=== PATIENT | female | born 1975 | race American Indian/Alaskan Native ===

== ENCOUNTER 2017-12-23 05:14 | Emergency (ER) | payer BC ==
--- NOTE | 2017-12-23 10:11 | Emergency Department Report ---
ED General Adult HPI - General Chief complaint: Rectal Pain Stated complaint: HEMORRHOIDS Time Seen by Provider: 12/23/17 10:03 Source: patient Mode of arrival: Ambulatory Limitations: No Limitations - History of Present Illness Initial comments: 42-year-old female with past medical history of hemorrhoids in the past presents to the hospital complaining of swollen hemorrhoids since 7 PM yesterday after attempting to strain to have a bowel movement. Patient is experiencing constipation and has not had a good bowel movement in the last 2-3 days. She complains of 5/10 rectal pain secondary to hemorrhoid and is worse with palpation and defecation. Minimum bleeding reported. History of hemorrhoids before but they have never been this pain. - Related Data Previous Rx's Medication Instructions Recorded Last Taken Type Dibucaine 1% [Nupercainal] 1 applicatio NC TID PRN #1 tube 12/23/17 Unknown Rx Hydrocortisone/Pramoxine 10 gm RC QID PRN #1 foam 12/23/17 Unknown Rx [Proctofoam-Hc Foam] Polyethylene Glycol 3350 [Miralax 17 gm PO QDAY PRN #7 packet 12/23/17 Unknown Rx 3350] Allergies Allergy/AdvReac Type Severity Reaction Status Date / Time No Known Allergies Allergy Unverified 12/23/17 06:59 ED Review of Systems ROS: Stated complaint: HEMORRHOIDS Other details as noted in HPI Comment: All other systems reviewed and negative ED Past Medical Hx - Past Medical History Additional medical history: Hemorrhoids - Surgical History Past Surgical History?: No - Social History Smoking Status: Never Smoker Substance Use Type: None - Medications Home Medications: Home Medications Medication Instructions Recorded Confirmed Last Taken Type Dibucaine 1% [Nupercainal] 1 applicatio NC TID PRN #1 tube 12/23/17 Unknown Rx Hydrocortisone/Pramoxine 10 gm RC QID PRN #1 foam 12/23/17 Unknown Rx [Proctofoam-Hc Foam] Polyethylene Glycol 3350 [Miralax 17 gm PO QDAY PRN #7 packet 12/23/17 Unknown Rx 3350] ED Physical Exam - General Limitations: No Limitations - Other Other exam information: General: No limitations, patient is alert in no acute distress Head exam: Atraumatic, normocephalic Eyes exam: Normal appearance ENT: Moist mucous membrane Neck exam: Normal inspection Respiratory exam: Clear to auscultation bilateral, no wheezes, rales, crackles Cardiovascular: Normal rate and rhythm, normal heart sounds Abdomen: Soft, nondistended, and nontender, with normal bowel sounds, no rebound, or guarding Rectal: 2 large hemorrhoids without active bleeding or thrombosis. Tender to palpation Extremity: Full range of motion normal inspection no deformity Back: Normal Inspection, full range of motion, no tenderness Neurologic: Alert, oriented x3, cranial nerves intact, no motor or sensory deficit Psychiatric: normal affect, normal mood Skin: Warm, dry, intact ED Course Vital Signs 12/23/17 05:19 Temperature 98.7 F Pulse Rate 62 Respiratory 18 Rate Blood Pressure 143/52 O2 Sat by Pulse 99 Oximetry ED Medical Decision Making - Medical Decision Making Patient presents with acutely worsening hemorrhoids. Prescribed medications for symptomatic treatment. Surgical referral for definitive management if no improvement - Differential Diagnosis hemorrhoids, prolapse, thrombosis, bleeding Critical Care Time: No Critical care attestation.: If time is entered above; I have spent that time in minutes in the direct care of this critically ill patient, excluding procedure time. ED Disposition Clinical Impression: Acute hemorrhoid, Constipation Disposition: - TO HOME OR SELFCARE Is pt being admited?: No Does the pt Need Aspirin: No Condition: Stable Instructions: Hemorrhoids (ED), Sitz Bath (GEN) Additional Instructions: Take the medication as prescribed. Follow up with your doctor or the doctor provided. Return if symptoms worsen as indicated by your discharge instructions Prescriptions: Dibucaine 1% [Nupercainal] 1 applicatio NC TID PRN #1 tube PRN Reason: Hemorrhoids Hydrocortisone/Pramoxine [Proctofoam-Hc Foam] 10 gm RC QID PRN #1 foam PRN Reason: Hemorrhoids Polyethylene Glycol 3350 [Miralax 3350] 17 gm PO QDAY PRN #7 packet PRN Reason: Constipation Referrals: FRANKY FREEMAN MD [Staff Physician] - 3-5 Days (surgeon ) KASIE ALSTON MD [Staff Physician] - 3-5 Days (primary care doctor) [facility] [Provider Group] - 3-5 Days (primary care clinic ) Time of Disposition: 10:12
[2017-12-23 10:31] VITALS: BP 117/51
== END 2017-12-23 10:24 | disposition home or self-care (01) ==
LOC: ED 05:14
DX: K64.8 Other hemorrhoids (principal); K59.00 Constipation, unspecified
CPT/HCPCS: 99282